=== PATIENT | female | born 1965 | race Caucasian/White ===

== ENCOUNTER 2021-05-10 10:43 | Emergency (ER) | payer OTHER ==
[2021-05-10 12:58] LABS: Bilirubin Neg (Negative); Blood, Urine 10 (Negative); Clarity Slightly Cloudy (Clear); Glucose, Urine (Dipstick) Normal (Negative); Ketone, Urine Negative (Negative); Leukocyte 500 (Negative); Nitrite Negative (Negative); Protein, Urine (Dipstick) Negative (Neg-Trace); Urobilinogen Normal mg/dL (Less than 2); pH, Urine 6.5 (5.0-9.0)
[2021-05-10 13:12] LABS: Bacteria/HPF 2+ HPF (None Seen); Mucous/LPF Rare LPF (<2+); RBC/HPF 0-3 HPF (0-3); Transitional Epithelial 0-3 HPF (None Seen)
== END 2021-05-10 13:30 | disposition home or self-care (01) ==
LOC: CSHERS 10:43
DX: N39.0 Urinary tract infection, site not specified (principal); M79.672 Pain in left foot
CPT/HCPCS: 81003; 81015; 87086; 99283

== ENCOUNTER 2021-05-14 20:49 | Emergency (ER) | payer OTHER ==
[2021-05-14] MEDS ORDERED: Acetaminophen 500 MG TAB ONE (21:55)
[2021-05-14 22:04] LABS: Bilirubin 1+ (Negative); Blood, Urine 10 (Negative); Clarity Cloudy (Clear); Glucose, Urine (Dipstick) Normal (Negative); Ketone, Urine 5 mg/dL (Negative); Leukocyte 500 (Negative); Nitrite Negative (Negative); Protein, Urine (Dipstick) 30 mg/dl (Neg-Trace)
[2021-05-14 22:14] LABS: Bacteria/HPF 3+ HPF (None Seen); Calcium Oxalate Crystals Rare HPF (None Seen); Mucous/LPF 3+ LPF (<2+); RBC/HPF 0-3 HPF (0-3); Transitional Epithelial 0-3 HPF (None Seen)
[2021-05-14] MEDS ORDERED: Ketorolac Tromethamine 30 MG/ML VIAL ONE (22:55)
== END 2021-05-14 23:12 | disposition home or self-care (01) ==
LOC: CSHERS 20:49
DX: M54.50 Low back pain, unspecified (principal); R03.0 Elevated blood-pressure reading, without diagnosis of hypertension; Z79.899 Other long term (current) drug therapy
CPT/HCPCS: 81003; 81015; 87086; 96372; 99283; J1885

== ENCOUNTER 2021-07-03 12:30 | Emergency (ER) | payer BC, OTHER | END 2021-07-03 14:07 | disposition home or self-care (01) | LOC: CSHERS 12:30 | DX: M77.32 Calcaneal spur, left foot (principal); Z86.16 Personal history of COVID-19 ==

== ENCOUNTER 2021-10-08 08:49 | Emergency (ER) | payer OTHER | END 2021-10-08 10:58 | disposition home or self-care (01) | LOC: CSHERS 08:49 | DX: J20.9 Acute bronchitis, unspecified (principal); I10 Essential (primary) hypertension | CPT/HCPCS: 71045 ==

== ENCOUNTER 2022-03-27 10:57 | Emergency (ER) | payer OTHER ==
[2022-03-27 12:03] LABS: #Eosinphils 0.2 10x3/uL (0.0-0.5); #Monocytes 0.3 10x3/uL (0.0-1.1); #Neutrophils 2.5 10x3/uL (1.5-8.4); %Basophils 0.2 % (0.0-2.0); %Eosinophils 4.1 % (0.0-6.0); %Lymphocytes 29.4 % (18.0-47.0); %Monocytes 6.4 % (0.0-10.0); %Neutrophils 59.7 % (40.0-75.0); Hemoglobin 12.3 g/dL (12.0-15.5); Mean Corpuscular HGB CONC 34.5 g/dL (32.0-36.0); Mean Corpuscular Hemoglobin 33.1 pg (27.0-33.0); Mean Platelet Volume 10.6 fl (7.4-10.4); Platelet Count 132 10x3/uL (150-450); RBC Distribution Width 12.6 % (11.5-14.5); Red Blood Cell (RBC) Count 3.72 10x6/uL (3.90-5.03); White Blood Cell (WBC) Count 4.2 10x3/uL (3.5-10.5)
[2022-03-27 12:25] LABS: ALT (SGPT) 9 U/L (8-55); AST (SGOT) 16 U/L (5-34); Albumin 3.7 g/dL (3.5-5.0); Alkaline Phosphatase 66 U/L (40-110); Anion Gap 11 mmol/L (10-20); BUN (Urea Nitrogen) 16 mg/dL (9.8-20.1); Bilirubin, Total 1.1 mg/dL (0.2-1.2); Calc. Creatinine Clearance 0 mL/min (70-130); Calcium 8.8 mg/dL (7.8-10.44); Carbon Dioxide 26 mmol/L (22-29); Chloride 108 mmol/L (98-107); Estimated GFR 101; Globulin 2.4 g/dL (2.4-3.5); Glucose 124 mg/dL (70-105); Potassium 4.2 mmol/L (3.5-5.1); Protein, Total 6.1 g/dL (6.0-8.3); Sodium 141 mmol/L (136-145)
[2022-03-27 14:12] LABS: Bilirubin Neg (Negative); Blood, Urine Negative (Negative); Clarity Sl. Cloudy (Clear); Glucose, Urine (Dipstick) Normal (Negative); Ketone, Urine Negative (Negative); Leukocyte 25 (Negative); Nitrite Negative (Negative); Protein, Urine (Dipstick) Negative (Neg-Trace); Urobilinogen Normal mg/dL (Less than 2)
[2022-03-27 14:35] LABS: RBC/HPF 0-3 HPF (0-3)
[2022-03-27 14:36] LABS: Bacteria/HPF Rare-Few HPF (None Seen); Squamous Epithelial 0-3 HPF (0-3)
[2022-03-27] MEDS ORDERED: Ketorolac Tromethamine 30 MG/ML VIAL ONE (14:36)
== END 2022-03-27 15:25 | disposition home or self-care (01) ==
LOC: CSHERS 10:57
DX: N39.0 Urinary tract infection, site not specified (principal); I10 Essential (primary) hypertension
CPT/HCPCS: 36415; 80053; 81003; 81015; 83605; 85025; 96372; 99283; J1885

== ENCOUNTER 2022-07-22 11:10 | Emergency (ER) | payer BC, OTHER | END 2022-07-22 13:20 | disposition home or self-care (01) | LOC: CSHERS 11:10 | DX: J06.9 Acute upper respiratory infection, unspecified (principal); I10 Essential (primary) hypertension; Z20.822 Contact with and (suspected) exposure to COVID-19 | CPT/HCPCS: 99283; U0003; U0005 ==

== ENCOUNTER 2022-08-17 13:00 | Emergency (ER) | payer OTHER ==
[2022-08-17 13:55] LABS: Bilirubin Neg (Negative); Blood, Urine Negative (Negative); Clarity Clear (Clear); Glucose, Urine (Dipstick) Normal (Negative); Ketone, Urine Negative (Negative); Leukocyte 500 (Negative); Nitrite Negative (Negative); Protein, Urine (Dipstick) Negative (Neg-Trace); Specific Gravity, Urine 1.015 (1.005-1.030); Urobilinogen Normal mg/dL (Less than 2)
[2022-08-17 14:05] LABS: Bacteria/HPF None Seen HPF (None Seen); RBC/HPF None Seen HPF (0-3); Squamous Epithelial 0-3 HPF (0-3)
[2022-08-17] MEDS ORDERED: Dexamethasone 10 MG/ML VIAL ONE (14:34)
== END 2022-08-17 14:29 | disposition home or self-care (01) ==
LOC: CSHERS 13:00
DX: N39.0 Urinary tract infection, site not specified (principal); R09.81 Nasal congestion; I10 Essential (primary) hypertension
CPT/HCPCS: 81003; 81015; 87086; 96374; J1100

== ENCOUNTER 2022-08-20 08:31 | Emergency (ER) | payer OTHER | END 2022-08-20 09:31 | disposition home or self-care (01) | LOC: CSHERS 08:31 | DX: J01.90 Acute sinusitis, unspecified (principal); I10 Essential (primary) hypertension | CPT/HCPCS: 71046; 93005 ==

== ENCOUNTER 2023-02-01 13:32 | Emergency (ER) | payer OTHER ==
[2023-02-01] MEDS ORDERED: Ketorolac Tromethamine 30 MG/ML VIAL ONE (14:20)
[2023-02-01 14:25] LABS: ALT (SGPT) 82 U/L (8-55); AST (SGOT) 55 U/L (5-34); Albumin 3.8 g/dL (3.5-5.0); Alkaline Phosphatase 56 U/L (40-110); Anion Gap 12 mmol/L (10-20); BUN (Urea Nitrogen) 12 mg/dL (9.8-20.1); Bilirubin, Total 1.2 mg/dL (0.2-1.2); Calc. Creatinine Clearance 0 mL/min (70-130); Carbon Dioxide 24 mmol/L (22-29); Chloride 110 mmol/L (98-107); Estimated GFR 96; Globulin 2.9 g/dL (2.4-3.5); Glucose 111 mg/dL (70-105); Potassium 4.2 mmol/L (3.5-5.1); Protein, Total 6.7 g/dL (6.0-8.3); Sodium 142 mmol/L (136-145)
[2023-02-01 14:31] LABS: Bilirubin Neg (Negative); Blood, Urine Negative (Negative); Clarity Clear (Clear); Glucose, Urine (Dipstick) Normal (Negative); Ketone, Urine Negative (Negative); Leukocyte 100 (Negative); Nitrite Negative (Negative); Protein, Urine (Dipstick) 15 mg/dl (Neg-Trace); Specific Gravity, Urine 1.015 (1.005-1.030); pH, Urine 6.5 (5.0-9.0)
[2023-02-01 14:39] LABS: #Eosinphils 0.2 10x3/uL (0.0-0.5); #Monocytes 0.4 10x3/uL (0.0-1.1); #Neutrophils 3.3 10x3/uL (1.5-8.4); %Basophils 0.2 % (0.0-2.0); %Eosinophils 3.2 % (0.0-6.0); %Lymphocytes 25.6 % (18.0-47.0); %Neutrophils 62.8 % (40.0-75.0); Hematocrit 38.2 % (34.9-44.5); Mean Corpuscular Hemoglobin 32.5 pg (27.0-33.0); Mean Corpuscular Volume 95.5 fl (81.6-98.3); Mean Platelet Volume 10.7 fl (7.4-10.4); Platelet Count 143 10x3/uL (150-450); RBC Distribution Width 12.5 % (11.5-14.5); White Blood Cell (WBC) Count 5.3 10x3/uL (3.5-10.5)
[2023-02-01 14:53] LABS: RBC/HPF None Seen HPF (0-3)
[2023-02-01 14:54] LABS: Bacteria/HPF 3+ HPF (None Seen); CAUTI Indications for Culture Pelvic or flank pain; Mucous/LPF 2+ LPF (<2+); Squamous Epithelial 0-3 HPF (0-3); Transitional Epithelial 0-3 HPF (None Seen); Urine Culture Reflex No No
[2023-02-01] MEDS ORDERED: HYDROcodone/Acetaminophen 10/325 mg Tablet ONE (15:33)
== END 2023-02-01 16:53 | disposition home or self-care (01) ==
LOC: CSHERS 13:32
DX: N20.1 Calculus of ureter (principal); R82.71 Bacteriuria; I10 Essential (primary) hypertension
CPT/HCPCS: 36415; 74176; 80053; 81001; 85025; 87086; 96372; J1885

== ENCOUNTER 2023-04-06 09:48 | Emergency (ER) | payer BC, OTHER ==
[2023-04-06 11:49] LABS: #Eosinphils 0.1 10x3/uL (0.0-0.5); #Monocytes 0.3 10x3/uL (0.0-1.1); %Basophils 0.2 % (0.0-2.0); %Eosinophils 1.4 % (0.0-6.0); %Lymphocytes 31.6 % (18.0-47.0); %Monocytes 5.7 % (0.0-10.0); %Neutrophils 60.9 % (40.0-75.0); Hematocrit 40.2 % (34.9-44.5); Hemoglobin 13.8 g/dL (12.0-15.5); Mean Corpuscular HGB CONC 34.3 g/dL (32.0-36.0); Mean Corpuscular Hemoglobin 32.6 pg (27.0-33.0); Mean Platelet Volume 10.6 fl (7.4-10.4); Platelet Count 137 10x3/uL (150-450); RBC Distribution Width 12.5 % (11.5-14.5); Red Blood Cell (RBC) Count 4.23 10x6/uL (3.90-5.03); White Blood Cell (WBC) Count 4.9 10x3/uL (3.5-10.5)
[2023-04-06 12:01] LABS: ALT (SGPT) 29 U/L (8-55); AST (SGOT) 27 U/L (5-34); Albumin 3.8 g/dL (3.5-5.0); Alkaline Phosphatase 61 U/L (40-110); Anion Gap 13 mmol/L (10-20); BUN (Urea Nitrogen) 11 mg/dL (9.8-20.1); Calc. Creatinine Clearance 0 mL/min (70-130); Calcium 9.3 mg/dL (7.8-10.44); Carbon Dioxide 22 mmol/L (22-29); Chloride 109 mmol/L (98-107); Estimated GFR 93; Glucose 106 mg/dL (70-105); Potassium 4.2 mmol/L (3.5-5.1); Protein, Total 6.8 g/dL (6.0-8.3); Sodium 140 mmol/L (136-145)
[2023-04-06 12:32] LABS: Bilirubin Neg (Negative); Blood, Urine 10 (Negative); Clarity Clear (Clear); Glucose, Urine (Dipstick) Normal (Negative); Ketone, Urine Negative (Negative); Leukocyte 25 (Negative); Nitrite Negative (Negative); Protein, Urine (Dipstick) Negative (Neg-Trace); Urobilinogen Normal mg/dL (Less than 2)
[2023-04-06 13:02] LABS: Bacteria/HPF Rare-Few HPF (None Seen); CAUTI Indications for Culture Dysuria,urgency,freq; Mucous/LPF Few LPF (<2+); RBC/HPF 0-3 HPF (0-3); Squamous Epithelial 0-3 HPF (0-3); WBC/HPF 0-3 HPF (0-3)
[2023-04-06 13:03] LABS: Urine Culture Reflex No No
[2023-04-06] MEDS ORDERED: Dicyclomine 20 MG/2 ML VIAL ONE (13:34)
[2023-04-06] MEDS ORDERED: Ketorolac Tromethamine 30 MG/ML VIAL ONE (13:35)
== END 2023-04-06 14:06 | disposition home or self-care (01) ==
LOC: CSHERS 09:48
DX: R10.9 Unspecified abdominal pain (principal); I10 Essential (primary) hypertension
CPT/HCPCS: 36415; 74176; 80053; 81001; 85025; 96372; 96374; J1885

== ENCOUNTER 2023-07-11 12:03 | Emergency (ER) | payer OTHER ==
[2023-07-11] MEDS ORDERED: Ondansetron PF 4 MG/2 ML Vial ONE (12:40)
[2023-07-11] MEDS ORDERED: Ketorolac Tromethamine 30 MG (1 mL) VIAL ONE (12:41)
[2023-07-11] MEDS ORDERED: Morphine 4 MG/ML VIAL ONE ×2 (13:10→14:28)
[2023-07-11 13:24] LABS: #Eosinphils 0.1 10x3/uL (0.0-0.5); #Monocytes 0.4 10x3/uL (0.0-1.1); #Neutrophils 4.3 10x3/uL (1.5-8.4); %Basophils 0.3 % (0.0-2.0); %Eosinophils 1.5 % (0.0-6.0); %Lymphocytes 19.6 % (18.0-47.0); %Monocytes 6.1 % (0.0-10.0); %Neutrophils 72.3 % (40.0-75.0); Hematocrit 37.7 % (34.9-44.5); Hemoglobin 13.2 g/dL (12.0-15.5); Mean Corpuscular Hemoglobin 32.8 pg (27.0-33.0); Mean Corpuscular Volume 93.8 fl (81.6-98.3); Mean Platelet Volume 10.6 fl (7.4-10.4); Platelet Count 189 10x3/uL (150-450); RBC Distribution Width 12.5 % (11.5-14.5); Red Blood Cell (RBC) Count 4.02 10x6/uL (3.90-5.03); White Blood Cell (WBC) Count 5.9 10x3/uL (3.5-10.5)
[2023-07-11 13:39] LABS: ALT (SGPT) 18 U/L (8-55); AST (SGOT) 22 U/L (5-34); Alkaline Phosphatase 72 U/L (40-110); Anion Gap 17 mmol/L (10-20); BUN (Urea Nitrogen) 13 mg/dL (9.8-20.1); Bilirubin, Total 1.1 mg/dL (0.2-1.2); Calc. Creatinine Clearance 0 mL/min (70-130); Calcium 9.4 mg/dL (7.8-10.44); Carbon Dioxide 22 mmol/L (22-29); Chloride 107 mmol/L (98-107); Estimated GFR 82; Globulin 3.5 g/dL (2.4-3.5); Glucose 151 mg/dL (70-105); Potassium 3.5 mmol/L (3.5-5.1); Protein, Total 7.5 g/dL (6.0-8.3); Sodium 142 mmol/L (136-145)
[2023-07-11] MEDS ORDERED: fentaNYL 50 mcg/mL 1 mL Vial ONE (15:47)
[2023-07-11 16:59] LABS: Bilirubin Neg (Negative); Blood, Urine 250 (Negative); Clarity Clear (Clear); Glucose, Urine (Dipstick) Normal (Negative); Ketone, Urine Negative (Negative); Leukocyte Negative (Negative); Nitrite Negative (Negative); Protein, Urine (Dipstick) 15 mg/dl (Neg-Trace); Specific Gravity, Urine 1.025 (1.005-1.030); Urobilinogen Normal mg/dL (Less than 2)
[2023-07-11 18:22] LABS: CAUTI Indications for Culture Pelvic or flank pain; WBC/HPF 0-3 HPF (0-3)
[2023-07-11 18:23] LABS: Bacteria/HPF 2+ HPF (None Seen); Mucous/LPF 1+ LPF (<2+); Squamous Epithelial 0-3 HPF (0-3)
[2023-07-11 18:25] LABS: Urine Culture Reflex No No
== END 2023-07-11 18:30 | disposition home or self-care (01) ==
LOC: CSHERS 12:03
DX: N13.2 Hydronephrosis with renal and ureteral calculous obstruction (principal); I10 Essential (primary) hypertension
CPT/HCPCS: 74176; 80053; 81001; 85025; 96361; 96374; 96375; 96376; J1885; J2270; J2405; J3010

== ENCOUNTER 2023-12-29 07:16 | Emergency (ER) | payer OTHER ==
[2023-12-29] MEDS ORDERED: Ondansetron PF 4 MG/2 ML Vial ONE (08:24)
[2023-12-29 08:29] LABS: #Basophils 0.01 10x3/uL (0.0-0.2); #Monocytes 0.48 10x3/uL (0.0-1.1); #Neutrophils 4.41 10x3/uL (1.5-8.4); %Basophils 0.2 % (0.0-2.0); %Eosinophils 1.7 % (0.0-6.0); %Lymphocytes 16.5 % (18.0-47.0); %Neutrophils 73.4 % (40.0-75.0); Hematocrit 40.1 % (34.9-44.5); Hemoglobin 14.3 g/dL (12.0-15.5); Mean Corpuscular HGB CONC 35.7 g/dL (32.0-36.0); Mean Corpuscular Hemoglobin 33.7 pg (27.0-33.0); Mean Corpuscular Volume 94.6 fL (81.6-98.3); Mean Platelet Volume 10.3 fL (7.4-10.4); Platelet Count 120 10x3/uL (150-450); RBC Distribution Width 12.4 % (11.5-14.5); Red Blood Cell (RBC) Count 4.24 10x6/uL (3.90-5.03)
[2023-12-29 08:47] LABS: Troponin I Less than 0.010 ng/mL (< 0.028)
[2023-12-29 08:50] LABS: ALT (SGPT) 14 U/L (8-55); AST (SGOT) 20 U/L (5-34); Albumin 3.4 g/dL (3.5-5.0); Alkaline Phosphatase 67 U/L (40-110); Anion Gap 14 mmol/L (10-20); BUN (Urea Nitrogen) 15 mg/dL (9.8-20.1); Bilirubin, Total 0.9 mg/dL (0.2-1.2); Calc. Creatinine Clearance 0 mL/min (70-130); Calcium 8.8 mg/dL (7.8-10.44); Carbon Dioxide 19 mmol/L (22-29); Chloride 111 mmol/L (98-107); Estimated GFR 83; Globulin 3.1 g/dL (2.4-3.5); Glucose 111 mg/dL (70-105); Potassium 3.5 mmol/L (3.5-5.1); Protein, Total 6.5 g/dL (6.0-8.3); Sodium 140 mmol/L (136-145)
== END 2023-12-29 10:06 | disposition home or self-care (01) ==
LOC: CSHERS 07:16
DX: R19.7 Diarrhea, unspecified (principal); R11.0 Nausea; I10 Essential (primary) hypertension
CPT/HCPCS: 36415; 71045; 80053; 84484; 85025; 93005; 96374; J2405

== ENCOUNTER 2024-05-04 10:46 | Emergency (ER) | payer OTHER ==
[2024-05-04] MEDS ORDERED: Sodium Chloride 0.9% 1,000 ML BAG ONE ×2 (11:32)
[2024-05-04] MEDS ORDERED: Ondansetron PF 4 MG/2 ML Vial ONE (11:32)
[2024-05-04] MEDS ORDERED: Acetaminophen 500 MG TAB ONE (11:32)
[2024-05-04] MEDS ORDERED: Morphine 4 MG/ML VIAL ONE ×2 (11:32)
[2024-05-04] MEDS ORDERED: Ketorolac Tromethamine 30 MG (1 mL) VIAL ONE (11:32)
== END 2024-05-04 13:56 | disposition home or self-care (01) ==
LOC: CSHERS 10:46
DX: N13.6 Pyonephrosis (principal)
CPT/HCPCS: 74176; 96374; 96375; J1885; J2272; J2405; J7030

== ENCOUNTER 2024-07-15 15:32 | Emergency (ER) | payer OTHER ==
[2024-07-15] MEDS ORDERED: Lidocaine Viscous Sol 2% 15 ml UD Cup ONE (17:32)
== END 2024-07-15 17:45 | disposition home or self-care (01) ==
LOC: CSHERS 15:32
DX: K02.9 Dental caries, unspecified (principal)
CPT/HCPCS: 99283

== ENCOUNTER 2024-12-08 09:05 | Emergency (ER) | payer OTHER ==
[2024-12-08] MEDS ORDERED: Dexamethasone 10 MG/ML VIAL ONE (09:58)
== END 2024-12-08 11:10 | disposition home or self-care (01) ==
LOC: CSHERS 09:05
DX: U07.1 COVID-19 (principal); I10 Essential (primary) hypertension
CPT/HCPCS: 87426; 93005; 99284; J1100